=== PATIENT | male | born 1960 | race Caucasian/White ===

== ENCOUNTER 2018-06-27 23:54 | Observation (INO) | payer OTHER, MEDICAID ==
[~2018-06-27] VITALS: Ht 182.9 cm; Wt 95.3 kg
[2018-06-28] VITALS (9 sets, daily range): BP systolic 103–136; BP diastolic 60–75
[2018-06-28] MEDS ORDERED: methylPREDNISolone SOD SUCC 125 MG/2 ML VL ONE (00:14)
[2018-06-28] MEDS ORDERED: ALBUTEROL SULF 2.5 MG/0.5ML(0.5%) NEB SOLN NEB ONE ×3 (00:45→06:15)
[2018-06-28] MEDS ORDERED: IPRATROPIUM BROM 0.5 MG/2.5ML INH SOL NEB ONE ×3 (00:45→06:15)
[2018-06-28] MEDS ORDERED: methylPREDNISolone SOD SUCC 125 MG/2 ML VL IV ONE ×2 (01:00→06:15)
[2018-06-28] MEDS ORDERED: SODIUM CHLORIDE 0.9% 1,000 ML IV ONE (01:00)
[2018-06-28 01:04] LABS: Basophils # (auto) 0 uL; Basophils % (auto) 0.4 % (0.0-2.0); Eosinophils # (auto) 0 uL; Eosinophils % (auto) 0.1 % (0.0-7.0); Hematocrit 47.5 % (41.0-53.0); Hemoglobin 15.6 g/dL (13.5-17.5); Lymphocytes # (auto) 0.7 uL; Lymphocytes % (auto) 5.2 % (10.0-50.0); Mean Corpuscular Hemoglobin 27.4 pg (28.0-32.0); Mean Corpuscular Hgb Conc. 32.8 g/dL (32.0-36.0); Mean Corpuscular Volume 83.5 fL (80.0-100.0); Monocytes # (auto) 0.7 uL; Neutrophils % (auto) 89.3 % (37.0-80.0); Platelet Count (auto) 133 10^3/uL (140-450); Red Blood Cells 5.69 10^6/uL (4.5-5.90); Red Cell Distribution Width 14.7 % (11.8-14.3); White Blood Cell 13.4 10^3/uL (4.4-10.8)
[2018-06-28 01:20] LABS: INR 0.97 (0.9-1.15); Partial Thromboplastin Time 31.5 sec (23.78-33.04); Prothrombin Time 10.4 sec (9.27-12.13)
[2018-06-28 01:26] LABS: Alanine Aminotransferase 58 U/L (16-61); Albumin 3.4 g/dL (3.4-5.0); Anion Gap 9 (5-15); Aspartate Aminotransferase 41 U/L (15-37); BUN/Creatinine Ratio 15.6; Blood Urea Nitrogen 22 mg/dL (7-18); Calcium 8.3 mg/dL (8.5-10.1); Carbon Dioxide 24 mmol/L (21-32); Chloride 100 mmol/L (98-107); GFR African American 66 mL/min; GFR Non-African American 55 mL/min; Glucose 108 mg/dL (74-106); Potassium 4.2 mmol/L (3.5-5.1); Sodium 133 mmol/L (136-145)
[2018-06-28 01:32] LABS: Alkaline Phosphatase 108 U/L (45-117); Bilirubin, Total 1.1 mg/dL (0.2-1.0)
[2018-06-28] MEDS ORDERED: PIPERACILLIN-TAZOB 3.375GM 100 ML IV ONE (02:30)
[2018-06-28] MEDS ORDERED: VANCOMYCIN 1GM/250ML 250 ML IV ONE (02:30)
[2018-06-28 02:44] LABS: Lactic Acid w/Reflex 3.3 mmol/L (0.4-2.0)
--- NOTE | 2018-06-28 06:43 | NUR ---
Respiratory note: RECEIVED PATIENT ON B1 BIPAP FITTED WITH A MEDIUM FULL FACE MASK, AND BEING VENTILATED WITH THE CHARTED SETTINGS. SPO2 94%, LUNG SOUNDS CLEAR/DIM T/O. PATIENT IS ALERT/ORIENTED AND TOLERATING BIPAP WELL. HE STATES THAT HE FEELS BETTER THAN HE DID ON ARRIVAL AND IS NOT FEELING SHORT OF BREATH. WILL CONTINUE TO MONITOR PATIENT FOR READINESS TO COME OFF BIPAP. ONE-TIME MED-NEB ORDERED AND RUN INLINE AT THIS TIME.
[2018-06-28] MEDS ORDERED: LEVOFLOXACIN 500MG 100 ML IV ONE (07:15)
[2018-06-28] MEDS ORDERED: SODIUM CHLORIDE 0.9% 500 ML IV ONE (07:15)
[2018-06-28] MEDS ORDERED: NITROGLYCERIN 0.4 MG SL TAB SL PRN (08:45)
[2018-06-28] MEDS ORDERED: MORPHINE SULFATE 4 MG/ML SYR/VIAL IV PRN (08:45)
[2018-06-28 09:10] LABS: Basophils # (auto) 0 uL; Basophils % (auto) 0.1 % (0.0-2.0); Eosinophils # (auto) 0 uL; Eosinophils % (auto) 0.1 % (0.0-7.0); Hematocrit 44.7 % (41.0-53.0); Hemoglobin 14.8 g/dL (13.5-17.5); Lymphocytes # (auto) 0.3 uL; Lymphocytes % (auto) 2.5 % (10.0-50.0); Mean Corpuscular Hemoglobin 27.7 pg (28.0-32.0); Monocytes # (auto) 0.3 uL; Monocytes % (auto) 2.3 % (0.0-12.0); Neutrophils # (auto) 13.2 uL; Nucleated Red Blood Cells % 0.1 %; Platelet Count (auto) 135 10^3/uL (140-450); Red Blood Cells 5.32 10^6/uL (4.5-5.90); Red Cell Distribution Width 14.9 % (11.8-14.3); White Blood Cell 13.8 10^3/uL (4.4-10.8)
[2018-06-28 09:22] LABS: Albumin 3.2 g/dL (3.4-5.0); Calcium 7.9 mg/dL (8.5-10.1); Potassium 4.2 mmol/L (3.5-5.1)
[2018-06-28 09:25] LABS: BUN/Creatinine Ratio 14.9; Bilirubin, Total 0.8 mg/dL (0.2-1.0); Total Protein 6.5 g/dL (6.4-8.2)
[2018-06-28] MEDS ORDERED: CLOPIDOGREL BISULFATE 75 MG TAB PO ONE (12:00)
[2018-06-28] MEDS: ALBUTEROL SULF 2.5 MG/0.5ML(0.5%) NEB SOLN NEB SCH ×2 (12:24→18:07)
[2018-06-28] MEDS: IPRATROPIUM BROM 0.5 MG/2.5ML INH SOL NEB SCH ×2 (12:25→18:07)
[2018-06-28] MEDS ORDERED: METOPROLOL TARTRATE 50 MG TAB PO ONE (12:30)
[2018-06-28] MEDS ORDERED: DIGOXIN 0.25 MG TAB PO ONE (12:30)
[2018-06-28] MEDS: methylPREDNISolone SOD SUCC 125 MG/2 ML VL IV SCH ×5 (14:12→21:54)
[2018-06-28] MEDS: METOPROLOL TARTRATE 50 MG TAB PO SCH (21:33)
[2018-06-29 00:01] VITALS: BP 139/77
[2018-06-29] MEDS: IPRATROPIUM BROM 0.5 MG/2.5ML INH SOL NEB SCH ×3 (00:01→12:17)
[2018-06-29] MEDS: ALBUTEROL SULF 2.5 MG/0.5ML(0.5%) NEB SOLN NEB SCH ×3 (00:01→12:17)
[2018-06-29 01:59] VITALS: BP 131/77
[2018-06-29 04:02] VITALS: BP 132/84
[2018-06-29 06:09] LABS: Basophils # (auto) 0 uL; Basophils % (auto) 0.1 % (0.0-2.0); Eosinophils # (auto) 0 uL; Hematocrit 44.6 % (41.0-53.0); Hemoglobin 14.6 g/dL (13.5-17.5); Lymphocytes # (auto) 0.7 uL; Lymphocytes % (auto) 4.6 % (10.0-50.0); Mean Corpuscular Hemoglobin 27.2 pg (28.0-32.0); Mean Corpuscular Hgb Conc. 32.6 g/dL (32.0-36.0); Mean Corpuscular Volume 83.5 fL (80.0-100.0); Monocytes # (auto) 0.4 uL; Monocytes % (auto) 2.7 % (0.0-12.0); Neutrophils # (auto) 14.3 uL; Neutrophils % (auto) 92.6 % (37.0-80.0); Nucleated Red Blood Cells % 0.2 %; Platelet Count (auto) 161 10^3/uL (140-450); Red Blood Cells 5.34 10^6/uL (4.5-5.90); White Blood Cell 15.4 10^3/uL (4.4-10.8)
[2018-06-29] MEDS: methylPREDNISolone SOD SUCC 125 MG/2 ML VL IV SCH ×2 (06:14→14:14)
[2018-06-29 06:18] LABS: Calcium 8.4 mg/dL (8.5-10.1); Potassium 4.1 mmol/L (3.5-5.1)
[2018-06-29 06:21] LABS: BUN/Creatinine Ratio 24.1
--- NOTE | 2018-06-29 06:47 | NUR ---
RECEIVED PT OFF BIPAP, RN SAID PT WASN'T ASPEN. BIPAP AND PT WAS REMOVED FROM BIPAP BY NOC RN. PT IS ON 6L SIMPLE MASK WITH A SPO2 92% AND IS COUGHING. MED NEB TX GIVEN WITH NO ADVERSE RX NOTED. WILL CONTINUE TO MONITOR PT.
[2018-06-29] MEDS ORDERED: guaiFENesin 200 MG/10 ML UD PO PRN (07:00)
[2018-06-29] MEDS ORDERED: VERAPAMIL HCL 40 MG TAB PO SCH (10:00)
[2018-06-29] MEDS ORDERED: LEVOFLOXACIN 250MG 50 ML IV SCH (10:00)
[2018-06-29] MEDS ORDERED: DIGOXIN 0.25 MG TAB PO SCH (10:00)
[2018-06-29] MEDS: METOPROLOL TARTRATE 50 MG TAB PO SCH (10:31)
[2018-06-29 15:55] VITALS: BP 135/89
[2018-06-29 16:07] VITALS: BP 145/94
== END 2018-06-29 14:47 | disposition home or self-care (01) | DRG 871 ==
LOC: EDBD 23:54 → ER 23:57 → TELE 06-28 08:32 → UNDOADMIN 06-28 08:39 → TELE 06-28 08:39 → ER 06-29 16:18
PROVIDERS: ADMIT Internal Medicine; ATTEND Internal Medicine
DX: A41.9 Sepsis, unspecified organism (principal); J18.9 Pneumonia, unspecified organism; J11.00 Influenza due to unidentified influenza virus with unspecified type of pneumonia; J44.0 Chronic obstructive pulmonary disease with (acute) lower respiratory infection; J44.1 Chronic obstructive pulmonary disease with (acute) exacerbation; I12.9 Hypertensive chronic kidney disease with stage 1 through stage 4 chronic kidney disease, or unspecified chronic kidney disease; N18.3 Chronic kidney disease, stage 3 (moderate); R09.02 Hypoxemia; I48.0 Paroxysmal atrial fibrillation; I27.21 Secondary pulmonary arterial hypertension; I70.0 Atherosclerosis of aorta; F12.90 Cannabis use, unspecified, uncomplicated; Z99.81 Dependence on supplemental oxygen; Z87.891 Personal history of nicotine dependence
CPT/HCPCS: 36415; 36600; 71045; 80048; 80053; 82805; 83605; 83880; 84484; 85025; 85610; 85730; 87040; 87804; 93005; 93306; 94640; 94644; 94660; 94761; 96365; 96366; 96367; 96368; 96375; 96376; 99284; A6250; G0378; J1956; J2543; J2930; J3370; J7611; J7644

== ENCOUNTER 2020-10-24 13:57 | Emergency (ER) | payer OTHER ==
[~2020-10-24] VITALS: Ht 185.4 cm; Wt 117.9 kg
[~2020-10-24 13:57] MED LIST: AMBR1TAB PO; ATOR20TA PO; CHOL20007 PO; CLOP75TA70 PO; DIGO1TAB37 PO; IPRIH IN; METO-289 PO; POM PO; SILD50TA42 PO; TRIATAB3 PO; VERA120T3 PO; [UNRECOGNIZED DRUG - CODE] PO
[2020-10-24 14:38] LABS: Basophils # (auto) 0.1 10 ^3/uL (0-0.2); Eosinophils # (auto) 0.5 10 ^3/uL (0-0.8); Hemoglobin 14.4 g/dL (13.5-17.5); Neutrophils # (auto) 3.7 10 ^3/uL (1.6-8.6); Red Cell Distribution Width 19.4 % (11.8-14.3)
[2020-10-24 14:40] LABS: Basophils % (auto) 1.2 % (0.0-2.0); Hematocrit 45.7 % (41.0-53.0); Lymphocytes # (auto) 1.1 10 ^3/uL (0.4-5.4); Lymphocytes % (auto) 18.4 % (10.0-50.0); Mean Corpuscular Hemoglobin 23.8 pg (28.0-32.0); Mean Corpuscular Hgb Conc. 31.5 g/dL (32.0-36.0); Mean Corpuscular Volume 75.4 fL (80.0-100.0); Monocytes # (auto) 0.6 10 ^3/uL (0-1.3); Monocytes % (auto) 9.8 % (0.0-12.0); Neutrophils % (auto) 62.6 % (37.0-80.0); Nucleated Red Blood Cells % 0.3 %; Red Blood Cells 6.05 10^6/uL (4.5-5.90); White Blood Cell 5.9 10^3/uL (4.4-10.8)
[2020-10-24 14:56] LABS: Albumin 3.3 g/dL (3.4-5.0); Anion Gap 8 (5-15); Blood Urea Nitrogen 26 mg/dL (7-18); Calcium 8.6 mg/dL (8.5-10.1); Carbon Dioxide 24 mmol/L (21-32); Chloride 106 mmol/L (98-107); Glucose 103 mg/dL (74-106); Potassium 3.7 mmol/L (3.5-5.1); Sodium 138 mmol/L (136-145)
[2020-10-24 15:01] LABS: Alanine Aminotransferase 31 U/L (16-61); Alkaline Phosphatase 106 U/L (45-117); Aspartate Aminotransferase 22 U/L (15-37); BUN/Creatinine Ratio 21.3; Bilirubin, Total 0.8 mg/dL (0.2-1.0); GFR African American 77 mL/min; GFR Non-African American 64 mL/min; Total Protein 7.3 g/dL (6.4-8.2)
[2020-10-24 15:19] LABS: Platelet Count (auto) 43 10^3/uL (140-450)
[2020-10-24 15:55] VITALS: BP 112/54
[2020-10-24 16:24] VITALS: BP 129/63
[2020-10-24 17:40] VITALS: BP 114/64
[2020-10-24] MEDS ORDERED: FUROSEMIDE 20 MG/2 ML VIAL IV ONE (18:00)
== END 2020-10-24 18:34 | disposition home or self-care (01) ==
LOC: ER 13:57 → EDBD 13:57 → ER 18:34
DX: R04.0 Epistaxis (principal); D69.6 Thrombocytopenia, unspecified; I27.21 Secondary pulmonary arterial hypertension; F12.10 Cannabis abuse, uncomplicated; J44.9 Chronic obstructive pulmonary disease, unspecified; E78.5 Hyperlipidemia, unspecified; I10 Essential (primary) hypertension; Z20.822 Contact with and (suspected) exposure to COVID-19; Z91.040 Latex allergy status
CPT/HCPCS: 36415; 36430; 71045; 80053; 83880; 84484; 85025; 86850; 86900; 86901; 87426; 96374; 99285; J1940; J7050; P9035